=== PATIENT | female | born 1985 | race Two or more races ===

== ENCOUNTER 2021-05-29 05:41 | Inpatient (IN) ==
[2021-05-29] MEDS ORDERED: miSOPROStoL 200 MCG TABLET RECTAL PRN (05:53)
[2021-05-29] MEDS ORDERED: LACTATED RINGERS 500 ML IV PRN (05:53)
[2021-05-29] MEDS ORDERED: OXYTOCIN/LR 20 UNIT/1,000 ML BAG IV ONE ×3 (05:53→11:43)
[2021-05-29] MEDS ORDERED: METHYLERGONOVINE 0.2 MG/1 ML AMP IM PRN (05:53)
[2021-05-29] MEDS ORDERED: TRANEXAMIC ACID 1,000 MG in SODIUM CHLORIDE 0.9% 100 ML IV PRN (05:53)
[2021-05-29] MEDS ORDERED: CARBOPROST TROMETHAMINE 250 MCG/ML AMP IM PRN (05:53)
[2021-05-29] MEDS ORDERED: ONDANSETRON 4 MG/2 ML VIAL IV PRN ×2 (05:53→11:43)
[2021-05-29] MEDS ORDERED: FAMOTIDINE 20 MG/2 ML VIAL IV ONE (05:56)
[2021-05-29] MEDS ORDERED: CITRIC ACID/SODIUM CITRATE 30 ML UDCUP PO ONE (05:56)
[2021-05-29] MEDS ORDERED: ceFAZolin 2,000 MG/50 ML DUPLEX IV ONE (06:14)
[2021-05-29 06:25] LABS: Basophils # 0.1 10*3/uL (0.0-0.2); Basophils % 0.7 % (0.0-0.8); Eosinophils # 0.1 10*3/uL (0.0-0.87); Hematocrit 29.6 VOL% (35.7-47.0); Hemoglobin 8.9 GM/DL (12.0-16.0); Immature Granulocytes % 1.6 %; Immature Granulocytes Absolute 0.12 #; Lymphocytes # 2.2 10*3/uL (1.4-4.0); Lymphocytes % 29.3 % (21.3-54.2); Mean Corpuscular HGB Conc 30.1 GM/DL (32-36); Mean Corpuscular Volume 80.4 FL (87-102); Mean Platelet Volume 11.1 FL (9.6-12.0); Monocytes % 6.4 % (1.7-12.7); Platelet Count 243 T/CUMM (130-400); Red Blood Count 3.68 MC/CUMM (3.8-5.5); Red Cell Distribution Width 17.3 % (9.3-17.3); White Blood Count 7.4 T/CUMM (4-12)
[2021-05-29 06:39] LABS: Bacteria,Urine Occasional /HPF (Few); Glucose,Urine (UA) Negative (Negative); Mucus,Urine Occasional /LPF (Occasional); Protein,Urine Negative (Negative); RBC,Urine 1 /HPF (0-4); Squamous Epithelial Cell,Urine Moderate /HPF (0-10); Urine Appearance Clear (Clear); Urine Color Yellow (Yellow); Urine Specific Gravity 1.015 (1.001-1.035)
[2021-05-29 06:40] LABS: Bilirubin,Urine Negative (Negative); Blood, Urine Negative (Negative); Ketones,Urine Negative (Negative); Nitrite,Urine Negative (Negative); Urine Urobilinogen 0.2 eU/dL (<2.0)
[2021-05-29 06:41] LABS: Alanine Aminotransferase 12 U/L (13-56); Albumin 2.4 G/DL (3.4-5.0); Alkaline Phosphatase 165 U/L (45-117); Aspartate Amino Transferase 17 U/L (0-37); Bilirubin,Total < 0.39 MG/DL (0.20-1.00); Blood Urea Nitrogen 10 MG/DL (7-18); Calcium 8.9 MG/DL (8.5-10.1); Carbon Dioxide 19 MMOL/L (21-32); Estimated Glom Filtration Rate 119 ML/MIN; Glucose 83 MG/DL (74-106); Osmolality,Calculated 270.8 MOS/KG (273-304); Potassium 4.1 MMOL/L (3.5-5.1); Sodium 137 MMOL/L (136-145); Total Protein 7.1 G/DL (6.4-8.2)
[2021-05-29] MEDS: LACTATED RINGERS 1,000 ML IV SCH ×2 (06:45→18:12)
[2021-05-29] MEDS ORDERED: ONDANSETRON 4 MG/2 ML VIAL ONE (07:02)
[2021-05-29] MEDS ORDERED: BUPIVACAINE SPINAL 0.75% 2 ML AMP SPINAL ONE (07:02)
[2021-05-29] MEDS ORDERED: buprenorphine HCL 0.3 MG/ML VIAL ONE (07:02)
[2021-05-29] MEDS ORDERED: PHENYLEPHRINE 1 MG/10 ML SYRINGE IV ONE ×2 (07:02→08:21)
[2021-05-29] MEDS ORDERED: MIDAZOLAM 2 MG/2 ML VIAL ONE (07:58)
[2021-05-29 08:22] LABS: Cord Venous Blood PCO2 48.5 MMHG; Cord Venous Blood PO2 24.6
[2021-05-29] MEDS ORDERED: KETOROLAC 30 MG/1 ML VIAL ONE ×2 (08:36)
[2021-05-29] MEDS ORDERED: HYDROmorphone 1 MG/1 ML SYRINGE IV PRN (08:54)
[2021-05-29] MEDS ORDERED: diphenhydrAMINE 50 MG/1 ML VIAL IV PRN (08:54)
[2021-05-29] MEDS ORDERED: hydrOXYzine HCL 25 MG/1 ML VIAL IM PRN (08:54)
[2021-05-29 09:07] LABS: Bacteria,Urine Occasional /HPF (Few); Squamous Epithelial Cell,Urine Occasional /HPF (0-10)
[2021-05-29 09:09] LABS: Bilirubin,Urine Negative (Negative); Blood, Urine Negative (Negative); Glucose,Urine (UA) Negative (Negative); Ketones,Urine Negative (Negative); Nitrite,Urine Negative (Negative); Protein,Urine Negative (Negative); Urine Appearance Clear (Clear); Urine Color Yellow (Yellow); Urine Specific Gravity 1.015 (1.001-1.035); Urine Urobilinogen 0.2 eU/dL (<2.0); Urine pH 6.5 (4.5-8.0)
[2021-05-29] MEDS ORDERED: BISACODYL 10 MG SUPP RECTAL PRN (11:43)
[2021-05-29] MEDS ORDERED: HYDROCORTISONE 2.5% RECTAL CREAM 30 GM TUBE TOP PRN (11:43)
[2021-05-29] MEDS ORDERED: BENZOCAINE 20%/MENTHOL 0.5% SPRAY 56 GM CAN TOP PRN (11:43)
[2021-05-29] MEDS ORDERED: RHO(D) IMMUNE GLOBULIN 300 MCG SYRINGE IM ONE (11:43)
[2021-05-29] MEDS ORDERED: LANOLIN 50% CREAM 0.3 OZ TUBE TOP PRN (11:43)
[2021-05-29] MEDS ORDERED: MEASLES/MUMPS/RUBELLA VACCINE 0.5 ML VIAL SUBCUT ONE (11:43)
[2021-05-29] MEDS ORDERED: DIPH/TET/ACEL PERT BOOSTER VACCINE 0.5 ML VIAL IM ONE (11:43)
[2021-05-29] MEDS ORDERED: ACETAMINOPHEN 325 MG TABLET PO PRN (11:43)
[2021-05-29] MEDS ORDERED: oxyCODONE/ACETAMINOPHEN 5-325 MG TABLET PO PRN (11:43)
[2021-05-29] MEDS ORDERED: WITCH HAZEL PADS 100/JAR TOP PRN (11:43)
[2021-05-29] MEDS: oxyCODONE/ACETAMINOPHEN 5-325 MG TABLET PO PRN ×2 (12:01→20:40)
[2021-05-29] MEDS: IBUPROFEN 800 MG TABLET PO PRN (12:02)
[2021-05-29] MEDS: ACETAMINOPHEN 500 MG TABLET PO SCH ×2 (14:13→20:40)
[2021-05-29] MEDS: KETOROLAC 30 MG/1 ML VIAL IV SCH ×2 (14:28→20:49)
[2021-05-29] MEDS: DOCUSATE SODIUM 100 MG CAPSULE PO SCH (21:11)
[2021-05-30] MEDS: ACETAMINOPHEN 500 MG TABLET PO SCH (02:50)
[2021-05-30] MEDS: KETOROLAC 30 MG/1 ML VIAL IV SCH (02:57)
[2021-05-30 06:19] LABS: Basophils # 0.1 10*3/uL (0.0-0.2); Basophils % 0.6 % (0.0-0.8); Eosinophils # 0.1 10*3/uL (0.0-0.87); Eosinophils % 0.7 % (0.00-10.9); Hematocrit 22.2 VOL% (35.7-47.0); Hemoglobin 6.7 GM/DL (12.0-16.0); Immature Granulocytes % 0.8 %; Immature Granulocytes Absolute 0.09 #; Lymphocytes # 2.4 10*3/uL (1.4-4.0); Lymphocytes % 22.1 % (21.3-54.2); Mean Corpuscular HGB Conc 30.2 GM/DL (32-36); Mean Corpuscular Volume 81.6 FL (87-102); Mean Platelet Volume 11.4 FL (9.6-12.0); Monocytes % 5.6 % (1.7-12.7); NRBC # 0.03 10*3/uL; Neutrophils % 70.2 % (38.7-73.9); Platelet Count 164 T/CUMM (130-400); Red Blood Count 2.72 MC/CUMM (3.8-5.5); Red Cell Distribution Width 17.6 % (9.3-17.3); White Blood Count 10.8 T/CUMM (4-12)
[2021-05-30] MEDS: oxyCODONE/ACETAMINOPHEN 5-325 MG TABLET PO PRN ×3 (06:37→19:44)
[2021-05-30] MEDS: DOCUSATE SODIUM 100 MG CAPSULE PO SCH ×2 (09:19→21:05)
[2021-05-30] MEDS: FERROUS SULFATE 325 MG TABLET PO SCH ×2 (09:19→21:05)
[2021-05-30] MEDS ORDERED: MAGNESIUM HYDROXIDE SUSP 30 ML UDCUP PO PRN (13:34)
[2021-05-30] MEDS: SIMETHICONE CHEW 80 MG TABLET PO PRN ×2 (13:44→21:05)
[2021-05-30] MEDS: IBUPROFEN 800 MG TABLET PO PRN ×2 (16:06→23:21)
[2021-05-30] MEDS ORDERED: MAGNESIUM CITRATE 300 ML BOTTLE PO ONE (20:51)
[2021-05-31] MEDS: oxyCODONE/ACETAMINOPHEN 5-325 MG TABLET PO PRN ×2 (04:11→09:48)
[2021-05-31] MEDS: FERROUS SULFATE 325 MG TABLET PO SCH (08:32)
[2021-05-31] MEDS: DOCUSATE SODIUM 100 MG CAPSULE PO SCH (08:32)
[2021-05-31] MEDS: IBUPROFEN 800 MG TABLET PO PRN (08:34)
[2021-05-31 09:23] VITALS: BP 127/69
== END 2021-05-31 13:30 | disposition home or self-care (01) | DRG 539 ==
LOC: N.LD 05:41 → N.OB 11:34
PROVIDERS: ADMIT Specialist; ATTEND Specialist